=== PATIENT | female | born 1985 | race Caucasian/White ===

== ENCOUNTER → 2023-12-13 14:39 | Outpatient (REF) | payer BC, SELFPAY | LOC: WDC 14:39 | PROVIDERS: ATTENDING PHYSICIAN Surgery; FAMILY PHYSICIAN Nurse Practitioner Family | DX: N64.4 Mastodynia (principal) | CPT/HCPCS: 76642; 77062; 77066 ==

== ENCOUNTER → 2024-02-04 06:57 | Outpatient (REF) | payer BC, SELFPAY ==
[2024-02-04 07:24] LABS: % Basophils 2.1 % (0-2); % Immature Granulocytes 0.3 % (0-0.5); % Lymphocytes 39.6 % (20.5-51.1); % Monocytes 6.3 % (1.7-9.3); % Neutrophils 46.7 % (42.2-75.2); Absolute Basophils 0.1 10^3/uL (0-0.2); Absolute Eosinophils 0.3 10^3/uL (0-0.7); Absolute Lymphocytes 2.6 10^3/uL (1.2-3.4); Absolute Monocytes 0.4 10^3/uL (0.1-0.6); Absolute Neutrophils 3.1 10^3/uL (1.4-6.5); Hematocrit 40.1 % (37.0-47.0); Hemoglobin 13.5 g/dL (12.0-16.0); Mean Corp Hgb Conc. 33.7 g/dL (33.0-37.0); Mean Corpuscular Hgb 27.7 pg (27.0-31.0); Mean Corpuscular Volume 82.3 fL (81.0-99.0); Mean Platelet Volume 8.6 fL (7.4-10.4); Nucleated Red Blood Cells % 0 %; Platelet Count 267 10^3/uL (130-400); Red Blood Cell Count 4.87 10^6/uL (4.20-5.40); Red Cell Dist. Width 12.5 % (11.5-14.5); White Blood Cell Count 6.5 10^3/uL (4.8-10.8)
[2024-02-04 07:57] LABS: ALT (SGPT) 23 U/L (0-35); AST (SGOT) 28 U/L (14-36); Alkaline Phosphatase 73 U/L (38-126); Blood Urea Nitrogen 12 mg/dl (7-17); Calcium 8.9 mg/dl (8.4-10.2); Carbon Dioxide 26 mmol/L (22-30); Chloride 105 mmol/L (98-107); Glucose 106 mg/dl (70-99); HDL Cholesterol 68 mg/dl; LDL Cholesterol, Calculated 115 mg/dl; Sodium 136 mmol/L (135-145); Total Bilirubin 0.5 mg/dl (0.2-1.3); Total Cholesterol 225 mg/dl (50-199); Total Protein 7.1 g/dl (6.3-8.2); Triglyceride 213 mg/dl (10-149); Very Low Density Lipoprotein 42 mg/dl (0-30); eGFR > 60.00
[2024-02-04 08:25] LABS: TSH Reflex To Free T4 1.82 uIU/ml (0.47-4.68)
[2024-02-04 14:15] LABS: Glycohemoglobin (HgbA1c) 6.2 % (4.0-5.6)
== END ==
LOC: REG 06:57
PROVIDERS: ATTENDING PHYSICIAN Nurse Practitioner Family; FAMILY PHYSICIAN Internal Medicine
DX: Z00.00 Encounter for general adult medical examination without abnormal findings (principal); R73.01 Impaired fasting glucose; E78.2 Mixed hyperlipidemia
CPT/HCPCS: 36415; 80053; 80061; 83036; 84443; 85025

== ENCOUNTER 2024-03-14 14:33 | Outpatient (RCR) | payer BC, SELFPAY | END 2024-03-14 23:59 | disposition home or self-care (01) | LOC: RPT 14:33 | PROVIDERS: ATTENDING PHYSICIAN Nurse Practitioner Family; FAMILY PHYSICIAN Internal Medicine | DX: M54.2 Cervicalgia (principal); Z73.6 Limitation of activities due to disability | CPT/HCPCS: 97110; 97161 ==

== ENCOUNTER → 2024-03-30 09:55 | Outpatient (REF) | payer BC, SELFPAY | LOC: WDC 09:55 | PROVIDERS: ATTENDING PHYSICIAN Surgery | DX: R92.2 Inconclusive mammogram (principal); R92.30 Dense breasts, unspecified; Z80.3 Family history of malignant neoplasm of breast | CPT/HCPCS: 76641 ==

== ENCOUNTER → 2024-04-07 15:44 | Outpatient (REF) | payer BC, SELFPAY ==
[2024-04-07 19:49] LABS: Urine Albumin Negative (Neg - Trace); Urine Bilirubin Negative (Negative); Urine Character Clear (Clear); Urine Color Yellow; Urine Glucose Negative (Negative); Urine Ketone Trace (Negative); Urine Leukocyte Trace (Negative); Urine Nitrite Negative (Negative); Urine Occult Blood Negative (Negative); Urine Urobilinogen Negative (Neg - 1+); Urine pH 6.5 (5.0-9.0)
[2024-04-07 20:07] LABS: Urine Red Blood Cell 0-2 /HPF (0-2); Urine Squamous Cell 0-2 /LPF (Few); Urine White Cell 0-2 /HPF (0-5)
[2024-04-07 20:16] LABS: Urine White Cell 0-2 /HPF (0-5)
== END ==
LOC: CLAB 15:44
PROVIDERS: ATTENDING PHYSICIAN Physician Assistant Medical
DX: R30.0 Dysuria (principal)
CPT/HCPCS: 81003; 81015

== ENCOUNTER → 2024-08-31 17:02 | Outpatient (REF) | payer BC, SELFPAY | LOC: MRI 3T 17:02 | PROVIDERS: ATTENDING PHYSICIAN Surgery; FAMILY PHYSICIAN Nurse Practitioner | DX: R92.2 Inconclusive mammogram (principal); R92.30 Dense breasts, unspecified; Z80.3 Family history of malignant neoplasm of breast; N63.10 Unspecified lump in the right breast, unspecified quadrant | CPT/HCPCS: 77049; A9585 ==

== ENCOUNTER → 2024-09-01 11:21 | Outpatient (REF) | payer BC, SELFPAY | LOC: CPAP 11:21 | PROVIDERS: ATTENDING PHYSICIAN Nurse Practitioner Adult Health | DX: Z01.419 Encounter for gynecological examination (general) (routine) without abnormal findings (principal) | CPT/HCPCS: 87624 ==

== ENCOUNTER → 2024-09-15 07:04 | Outpatient (REF) | payer BC, SELFPAY ==
[2024-09-15 09:00] LABS: ALT (SGPT) 25 U/L (0-35); AST (SGOT) 27 U/L (14-36); Albumin 4.1 g/dl (3.5-5.0); Alkaline Phosphatase 58 U/L (38-126); Blood Urea Nitrogen 14 mg/dl (7-17); Calcium 8.9 mg/dl (8.4-10.2); Carbon Dioxide 24 mmol/L (22-30); Chloride 104 mmol/L (98-107); Glucose 99 mg/dl (70-99); HDL Cholesterol 62 mg/dl; LDL Cholesterol, Calculated 124 mg/dl; Potassium 4.1 mmol/L (3.5-5.1); Sodium 139 mmol/L (135-145); Total Bilirubin 0.4 mg/dl (0.2-1.3); Total Cholesterol 224 mg/dl (50-199); Total Protein 7.1 g/dl (6.3-8.2); Triglyceride 190 mg/dl (10-149); Very Low Density Lipoprotein 38 mg/dl (0-30); eGFR > 60.00
[2024-09-15 11:15] LABS: Glycohemoglobin (HgbA1c) 5.9 % (4.0-5.6)
== END ==
LOC: REG 07:04
PROVIDERS: ATTENDING PHYSICIAN Nurse Practitioner
DX: E78.2 Mixed hyperlipidemia (principal); R73.01 Impaired fasting glucose
CPT/HCPCS: 36415; 80053; 80061; 83036